=== PATIENT | male | born 1995 | race Caucasian/White ===

== ENCOUNTER 2017-04-22 15:20 | Emergency (ER) | payer OTHER ==
[~2017-04-22] VITALS: Ht 185.4 cm; Wt 79.6 kg
[2017-04-22 15:20] VITALS: TEMP 36.4; Ht 185.4 cm; Wt 79.6 kg
[2017-04-22] MEDS ORDERED: ONDANSETRON INJ 2 MG/ML 2 ML VIAL IV STA (15:22)
[2017-04-22] MEDS ORDERED: KETOROLAC TROMETHAMINE 30 MG/ML VIAL IV STA (15:22)
[2017-04-22] MEDS ORDERED: SODIUM CHLORIDE 0.9% 1000ML 2,000 ML IV STA (15:22)
[2017-04-22 16:04] LABS: BASO % 0.2 %; BASO ABS # 0.03 K/uL (0-0.2); COMPLETE YES; HEMATOCRIT 40.6 % (42-52); IG% 0.4 %; LYMPH % 5.7 %; LYMPH ABS # 1.11 K/uL (1.2-3.4); MEAN CELL VOLUME 88.5 fL (80-100); MEAN CORPUSCULAR HEMOGLOBIN 31.6 pg (25-34); MEAN CORPUSCULAR HGB CONC 35.7 g/dl (32-36); MEAN PLATELET VOLUME 10.5 fL (7.4-10.4); MONO % 3.3 %; NEUT % 90.4 %; PLATELET COUNT 223 K/uL (130-400); RED BLOOD COUNT 4.59 M/uL (4.7-6.1); WHITE BLOOD COUNT 19.53 K/uL (4.8-10.8)
--- NOTE | 2017-04-22 16:15 | DIAGNOSTIC IMAGING REPORT ---
ABDOMEN 2VIEW W/PA CHEST RTN HISTORY: 22 years-old Male abd pain acute generalized abdominal pain with vomiting COMPARISON: None available TECHNIQUE: PA view of the chest with erect and supine views of the abdomen FINDINGS: Cardiomediastinal and hilar silhouettes are within normal limits. There is no pneumothorax, pleural effusion, focal airspace consolidation or overt pulmonary edema. Bones of the chest are grossly intact. Radiopaque focus overlying the lower lumbar spine is subsequently removed suggesting object external to the patient. Bowel gas pattern is nonobstructive. No pneumoperitoneum. No organomegaly or urolith identified. IMPRESSION: 1. Nonobstructive bowel gas pattern without pneumoperitoneum. 2. No acute cardiopulmonary abnormality. The above report was generated using voice recognition software. It may contain grammatical, syntax or spelling errors. Electronically signed by: Jeremias Ramirez M.D. 04/22/2017 4:13 PM Dictated Date/Time: 04/22/2017 4:12 PM
[2017-04-22 16:23] LABS: BUN/CREATININE RATIO 16.4 (10-20); CALCIUM 8.8 mg/dl (8.5-10.1); CREATININE 1.06 mg/dl (0.60-1.40); POTASSIUM 3.6 mmol/L (3.5-5.1)
[2017-04-22] MEDS ORDERED: OPTIRAY 320 IV PRN (17:30)
--- NOTE | 2017-04-22 17:46 | DIAGNOSTIC IMAGING REPORT ---
ABDOMEN AND PELVIS CT WITH IV CONTRAST CT DOSE: 338.71 mGy.cm HISTORY: Acute generalized abdominal pain diffuse abd pain TECHNIQUE: Multiaxial CT images of the abdomen and pelvis were performed following the use of intravenous contrast. 116 mL Optiray 320 IV contrast was administered A dose lowering technique was utilized adhering to the principles of ALARA. COMPARISON STUDY: None. FINDINGS: Lung bases are generally clear. No pneumoperitoneum. Imaged inferior cardiac chambers are unremarkable. The liver, spleen, gallbladder, pancreas and adrenal glands are within normal limits. Kidneys, ureters and urinary bladder are unremarkable. The abdominal aorta is normal in both course and caliber. There is no bulky adenopathy identified. There is no bowel obstruction or focal bowel wall thickening identified. Postsurgical changes compatible with prior appendectomy. Soft tissues are unremarkable. The bones appear intact. Bone islands of the pelvis and proximal femora noted. IMPRESSION: 1. No acute intra-abdominal or intrapelvic abnormality identified. 2. Prior appendectomy. Electronically signed by: Jeremias Ramirez M.D. 04/22/2017 5:44 PM Dictated Date/Time: 04/22/2017 5:39 PM
[2017-04-22 18:14] LABS: VEN BLD GAS O2 SATURATION 60.6 %; VEN BLOOD GAS BASE EXCESS -2.1 mEq/L
[2017-04-22 18:35] LABS: BUN/CREATININE RATIO 20.2 (10-20); CALCIUM 8.7 mg/dl (8.5-10.1); CREATININE 0.86 mg/dl (0.60-1.40); POTASSIUM 4.4 mmol/L (3.5-5.1)
[2017-04-22 18:40] LABS: URINE APPEARANCE CLEAR (CLEAR); URINE BILIRUBIN NEG (NEG); URINE COLOR YELLOW; URINE EPITHELIAL CELL AUTO 0-5 /lpf (0-5); URINE NITRITE NEG (NEG); URINE SPECIFIC GRAVITY > 1.045 (1.000-1.030); UROBILINOGEN NEG (NEG); ZZUR CULT IF INDIC CLEAN CATCH NO
[2017-04-22 18:42] LABS: MANUAL MICROSCOPIC REQUIRED? NO; REVIEW REQ? NO
[2017-04-22 18:57] VITALS: BP 133/63; PULSE 87; O2SAT 97
--- NOTE | 2017-04-22 19:08 | EMERGENCY ROOM VISIT NOTE ---
History Report prepared by Manohar: Nicholas Burris Under the Supervision of: Lisha CarrasquilloO. First contact with patient: 15:19 Chief Complaint: VOMITING Stated Complaint: VOMITING, PAIN ALL OVER, WEAK, NOT FEELING WELL History of Present Illness The patient is a 22 year old male who presents to the Emergency Room via EMS with complaints of a persistent illness that started last night. He says that he drank 3 beers last night, and did not do any drugs. He states that he remembers the entire night. The patient states that he has been having episodes of vomiting as well, and feels very weak. He says that he has not had any recent abdominal trauma or falls. The patient denies any chest pain, shortness of breath, blood in vomit, or pain or burning with urination. He notes that his last bowel movement was yesterday. He says that he has a history of an appendectomy. He does not take any daily medications. Source of History: patient, nursing staff Onset: Last night Position: other (global - illness) Quality: other (drank 3 beers last night, denies drugs) Timing: other (persistent) Associated Symptoms: + vomiting (no blood), + abdominal pain, + weakness, No chest pain, No SOB, No urinary symptoms Note: No other associated symptoms noted. Review of Systems See HPI for pertinent positives & negatives. A total of 10 systems reviewed and were otherwise negative. Past Medical & Surgical Medical Problems: (1) No chronic diseases present Surgical Problems: (1) Hx of appendectomy Family History No pertinent family history Social History Alcohol Use: occasionally Housing Status: lives with roommate Occupation Status: [employer] Current/Historical Medications No Active Prescriptions or Reported Meds Allergies Coded Allergies: Amoxicillin (Unverified Allergy, Unknown, UNKNOWN, 04/22/17) Azithromycin (Unverified Allergy, Unknown, UNKNOWN, 04/22/17) Cefaclor (Unverified Allergy, Unknown, UNKNOWN, 04/22/17) Physical Exam Vital Signs Date Time Temp Pulse Resp B/P (MAP) Pulse Ox O2 Delivery O2 Flow Rate FiO2 04/22/17 18:57 87 18 133/63 97 04/22/17 18:00 86 15 133/60 97 Room Air 04/22/17 17:32 95 16 121/59 97 Room Air 04/22/17 16:10 84 16 123/52 97 Room Air 04/22/17 15:20 36.4 90 16 139/83 99 Room Air Physical Exam GENERAL: up in bed, no acute distress, nontoxic, talking in full sentences EYE EXAM: normal conjunctiva. OROPHARYNX: no exudate, no erythema, lips, buccal mucosa, and tongue normal and mucous membranes are moist NECK: supple, no nuchal rigidity, no adenopathy, non-tender LUNGS: Clear to auscultation. Normal chest wall mechanics HEART: no murmurs, S1 normal and S2 normal ABDOMEN: abdomen soft, non-tender, normo-active bowel sounds, no masses, no rebound or guarding. BACK: Back is symmetrical on inspection and there is no deformity, no midline tenderness, no CVA tenderness. SKIN: no rashes and no bruising UPPER EXTREMITIES: upper extremities are grossly normal. LOWER EXTREMITIES: No pitting edema. NEURO EXAM: Normal sensorium, cranial nerves II-XII grossly intact, normal speech, no gross weakness of arms, no gross weakness of legs. Medical Decision & Procedures ER Provider Diagnostic Interpretation: Radiology results as stated below per my review and the radiologist's interpretation: ABDOMEN 2VIEW W/PA CHEST RTN HISTORY: 22 years-old Male abd pain acute generalized abdominal pain with vomiting COMPARISON: None available TECHNIQUE: PA view of the chest with erect and supine views of the abdomen FINDINGS: Cardiomediastinal and hilar silhouettes are within normal limits. There is no pneumothorax, pleural effusion, focal airspace consolidation or overt pulmonary edema. Bones of the chest are grossly intact. Radiopaque focus overlying the lower lumbar spine is subsequently removed suggesting object external to the patient. Bowel gas pattern is nonobstructive. No pneumoperitoneum. No organomegaly or urolith identified. IMPRESSION: 1. Nonobstructive bowel gas pattern without pneumoperitoneum. 2. No acute cardiopulmonary abnormality. The above report was generated using voice recognition software. It may contain grammatical, syntax or spelling errors. Electronically signed by: Jeremias Ramirez M.D. 04/22/2017 4:13 PM Dictated Date/Time: 04/22/2017 4:12 PM ABDOMEN AND PELVIS CT WITH IV CONTRAST CT DOSE: 338.71 mGy.cm HISTORY: Acute generalized abdominal pain diffuse abd pain TECHNIQUE: Multiaxial CT images of the abdomen and pelvis were performed following the use of intravenous contrast. 116 mL Optiray 320 IV contrast was administered A dose lowering technique was utilized adhering to the principles of ALARA. COMPARISON STUDY: None. FINDINGS: Lung bases are generally clear. No pneumoperitoneum. Imaged inferior cardiac chambers are unremarkable. The liver, spleen, gallbladder, pancreas and adrenal glands are within normal limits. Kidneys, ureters and urinary bladder are unremarkable. The abdominal aorta is normal in both course and caliber. There is no bulky adenopathy identified. There is no bowel obstruction or focal bowel wall thickening identified. Postsurgical changes compatible with prior appendectomy. Soft tissues are unremarkable. The bones appear intact. Bone islands of the pelvis and proximal femora noted. IMPRESSION: 1. No acute intra-abdominal or intrapelvic abnormality identified. 2. Prior appendectomy. Electronically signed by: Jeremias Ramirez M.D. 04/22/2017 5:44 PM Dictated Date/Time: 04/22/2017 5:39 PM Laboratory Results 04/22/17 15:52 Red Blood Count 4.59, Mean Corpuscular Volume 88.5, Mean Corpuscular Hemoglobin 31.6, Mean Corpuscular Hemoglobin Concent 35.7, Mean Platelet Volume 10.5, Neutrophils (%) (Auto) 90.4, Lymphocytes (%) (Auto) 5.7, Monocytes (%) (Auto) 3.3, Eosinophils (%) (Auto) 0.0, Basophils (%) (Auto) 0.2, Neutrophils # (Auto) 17.68, Lymphocytes # (Auto) 1.11, Monocytes # (Auto) 0.64, Eosinophils # (Auto) 0.00, Basophils # (Auto) 0.03 04/22/17 18:07 Test 04/22/17 15:52 04/22/17 18:07 04/22/17 18:20 White Blood Count 19.53 K/uL (4.8-10.8) Red Blood Count 4.59 M/uL (4.7-6.1) Hemoglobin 14.5 g/dL (14.0-18.0) Hematocrit 40.6 % (42-52) Mean Corpuscular Volume 88.5 fL (80-100) Mean Corpuscular Hemoglobin 31.6 pg (25-34) Mean Corpuscular Hemoglobin Concent 35.7 g/dl (32-36) Platelet Count 223 K/uL (130-400) Mean Platelet Volume 10.5 fL (7.4-10.4) Neutrophils (%) (Auto) 90.4 % Lymphocytes (%) (Auto) 5.7 % Monocytes (%) (Auto) 3.3 % Eosinophils (%) (Auto) 0.0 % Basophils (%) (Auto) 0.2 % Neutrophils # (Auto) 17.68 K/uL (1.4-6.5) Lymphocytes # (Auto) 1.11 K/uL (1.2-3.4) Monocytes # (Auto) 0.64 K/uL (0.11-0.59) Eosinophils # (Auto) 0.00 K/uL (0-0.5) Basophils # (Auto) 0.03 K/uL (0-0.2) RDW Standard Deviation 41.2 fL (36.4-46.3) RDW Coefficient of Variation 12.8 % (11.5-14.5) Immature Granulocyte % (Auto) 0.4 % Immature Granulocyte # (Auto) 0.07 K/uL (0.00-0.02) Total Bilirubin 0.5 mg/dl (0.2-1) Direct Bilirubin 0.1 mg/dl (0-0.2) Aspartate Amino Transf (AST/SGOT) 26 U/L (15-37) Alanine Aminotransferase (ALT/SGPT) 29 U/L (12-78) Alkaline Phosphatase 75 U/L (45-117) Total Protein 7.2 gm/dl (6.4-8.2) Albumin 4.4 gm/dl (3.4-5.0) Lipase 122 U/L (73-393) Venous Blood pH 7.36 (7.36-7.41) Venous Blood Partial Pressure CO2 42 mmHg (38.0-50.0) Venous Blood Partial Pressure O2 34 mmHg Venous Blood HCO3 23 mmol/L Venous Blood Oxygen Saturation 60.6 % Venous Blood Base Excess -2.1 mEq/L Anion Gap 11.0 mmol/L (3-11) Est Creatinine Clear Calc Drug Dose 153.0 ml/min Estimated GFR () 143.7 Estimated GFR (Non- 124.0 BUN/Creatinine Ratio 20.2 (10-20) Calcium Level 8.7 mg/dl (8.5-10.1) Urine Color YELLOW Urine Appearance CLEAR (CLEAR) Urine pH 5.0 (4.5-7.5) Urine Specific [place] > 1.045 (1.000-1.030) Urine Protein NEG (NEG) Urine Glucose (UA) NEG (NEG) Urine Ketones 2+ (NEG) Urine Occult Blood NEG (NEG) Urine Nitrite NEG (NEG) Urine Bilirubin NEG (NEG) Urine Urobilinogen NEG (NEG) Urine Leukocyte Esterase NEG (NEG) Urine WBC (Auto) 0 /hpf (0-5) Urine RBC (Auto) 0-4 /hpf (0-4) Urine Hyaline Casts (Auto) 0 /lpf (0-5) Urine Epithelial Cells (Auto) 0-5 /lpf (0-5) Urine Bacteria (Auto) NEG (NEG) Laboratory results per my review. Medications Administered Medications (Trade) Dose Ordered Sig/Alex Route Start Time Stop Time Status Last Admin Dose Admin Sodium Chloride 2,000 ml @ 999 mls/hr Q2H1M STAT IV 04/22/17 15:22 04/22/17 17:22 DC 04/22/17 15:32 999 MLS/HR Ondansetron HCl (Zofran Inj) 4 mg NOW STAT IV 04/22/17 15:22 04/22/17 15:25 DC 04/22/17 15:42 4 MG Ketorolac Tromethamine (Toradol Inj) 30 mg NOW STAT IV 04/22/17 15:22 04/22/17 15:25 DC 04/22/17 15:42 30 MG ED Course ED COURSE: Vital signs were reviewed and showed hypertensive situational vitals. The patients medical record was reviewed The above diagnostic studies were performed and reviewed. ED treatments and interventions as stated above. 1518: The patient was evaluated in room C1B. A complete history and physical examination was performed. 1522: Ordered Toradol Inj 30 mg IV, Zofran Inj 4 mg IV, NSS 2000 ml @ 999 mls/ hr IV. 1755: I reevaluated the patient, and he feels 100% better. I updated the patient. We will do repeat blood work. 1848: Upon reevaluation, the patient is feeling great. Mom was updated at bedside. I discussed my findings with the patient and he understands and agrees with the treatment plan. Based on the patients age, coexisting illnesses, exam and lab findings the decision to treat as an outpatient was made. The patient remained stable while under my care. The patient appeared well at the time of discharge. Medical Decision Differential diagnoses includes but is not limited to gastritis, peptic ulcer disease, GERD, gallbladder disease, pancreatitis, small bowel obstruction, acute coronary syndrome, pericarditis, ischemic bowel, irritable bowel disease, irritable bowel syndrome, appendicitis, diverticulitis, malignancy, hernia, urinary tract infection, torsion, perforation, trauma, infectious. Patient is a 22-year-old male who presents to ER referred diffuse stomach pain which is in the epigastric region associated with vomiting. Previous appendectomy. Last bowel movement was yesterday. Does admits to vomiting. He had 4 beers last night but does not normally drink. On exam he is a benign abdomen without signs peritonitis. Leukocytosis of 19,000. BMP shows a CO2 of 15. Bilirubin all LFTs and lipase is unremarkable. With a low CO2 repeat BMP and VBG was performed. No acidosis. CO2 increased was likely secondary to dehydration. He was given 2 L normal saline. UA was unremarkable. CT of the abdomen and pelvis was unremarkable. Patient was feeling significantly better following 2 L normal saline and Zofran. He was discharged with mom follow-up with PCP. I do favor SYMPTOMS are likely related to either a gastritis from drinking or a GI bug. Discussed with Pt concerning signs and symptoms to watch out for. Pt was instructed to follow up with their PCP and discussed with the patient their option to return to the ED at anytime for persistent or worsening symptoms. The appropriate anticipatory guidance and out-patient management, including indications for return to the emergency department, were explained at length to the patient and understood. Medication Reconcilliation Current Medication List: was personally reviewed by me Blood Pressure Screening Patient's blood pressure: Elevated blood pressure Blood pressure disposition: Elevated BP felt to be situational Impression Primary Impression: Vomiting Scribe Attestation The scribe's documentation has been prepared under my direction and personally reviewed by me in its entirety. I confirm that the note above accurately reflects all work, treatment, procedures, and medical decision making performed by me. Departure Information Dispostion Home / Self-Care Prescriptions No Active Prescriptions or Reported Meds Patient Instructions ED Nausea Vomiting, My [facility] Additional Instructions Please follow up with your primary care doctor with in the next 24 hours. Any worsening of your symptoms, please return to the ED immediately. This includes any fevers greater than 100.4, worsening pain, chest pain, shortness breath, persistent nausea, vomiting, unable to eat or drink, or any other concerning signs or symptoms from your standpoint. Please take with clear fluids for the remainder of the night. You can advance your diet tomorrow as needed. Problem Qualifiers Primary Impression: Vomiting Vomiting type: unspecified Vomiting Intractability: unspecified Nausea presence: unspecified Qualified Codes: R11.10 - Vomiting, unspecified
[2017-04-23] MEDS ORDERED: ONDA4TAB10 SL (05:30)
== END 2017-04-22 18:58 | disposition home or self-care (01) ==
LOC: C.EDC 15:23
DX: R11.10 Vomiting, unspecified (principal)

== ENCOUNTER 2017-04-22 21:30 | Emergency (ER) | payer OTHER ==
[~2017-04-22] VITALS: Ht 185.4 cm; Wt 82.0 kg
[2017-04-22 21:33] VITALS: TEMP 37.5; Ht 185.4 cm; Wt 82.0 kg
[2017-04-22] MEDS ORDERED: MoRPHine SULFATE 2 MG/ML CARP IV STA (22:03)
[2017-04-22] MEDS ORDERED: PROMETHAZINE HCL INJ 25 MG in SODIUM CHLORIDE 0.9% 50ML 50 ML IV STA (22:03)
[2017-04-22] MEDS ORDERED: PANTOprazole INJ 40 MG in SYRINGE 0 ML IV ONE (22:15)
[2017-04-22] MEDS ORDERED: SODIUM CHLORIDE 0.9% 1000ML 1,000 ML IV ONE ×2 (22:15→23:45)
[2017-04-22 22:19] LABS: GASTRIC OCCULT BLOOD POS (NEG); GASTRIC OCCULT BLOOD PH 3
[2017-04-22 22:21] LABS: BASO % 0.1 %; BASO ABS # 0.02 K/uL (0-0.2); COMPLETE YES; HEMATOCRIT 40.9 % (42-52); IG% 0.2 %; LYMPH % 10.5 %; LYMPH ABS # 1.83 K/uL (1.2-3.4); MEAN CELL VOLUME 87.2 fL (80-100); MEAN CORPUSCULAR HEMOGLOBIN 31.8 pg (25-34); MEAN CORPUSCULAR HGB CONC 36.4 g/dl (32-36); MEAN PLATELET VOLUME 10.9 fL (7.4-10.4); MONO % 3.8 %; NEUT % 85.4 %; PLATELET COUNT 261 K/uL (130-400); RED BLOOD COUNT 4.69 M/uL (4.7-6.1); WHITE BLOOD COUNT 17.37 K/uL (4.8-10.8)
[2017-04-22 22:26] LABS: ALB/GLOB RATIO 1.5 (0.9-2); BUN/CREATININE RATIO 16.5 (10-20); CALCIUM 9.8 mg/dl (8.5-10.1); CREATININE 1.01 mg/dl (0.60-1.40)
[2017-04-22 22:37] LABS: POTASSIUM 3.6 mmol/L (3.5-5.1)
[2017-04-23 00:13] LABS: BENZODIAZEPINE, URINE NEG (NEG); COCAINE,URINE NEG (NEG); PHENCYCLIDINE, URINE NEG (NEG)
[2017-04-23] MEDS ORDERED: PROCHLORPERAZINE 5 MG/ML 2 ML VIAL IV STA (00:35)
[2017-04-23] MEDS ORDERED: DiphenhydrAMINE HCL 50 MG/ML VIAL IV STA (00:35)
[2017-04-23] MEDS ORDERED: ONDA4TAB10 SL (05:30)
[2017-04-23 05:50] VITALS: BP 102/62; PULSE 73; O2SAT 98
--- NOTE | 2017-04-23 07:48 | EMERGENCY ROOM VISIT NOTE ---
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 History of Present Illness The patient is a 22 year old male who presents to the Emergency Room with complaints of nausea and vomiting for the past one day. The patient was seen and evaluated at this facility several hours ago with this complaint. At that visit he had blood work, antiemetics, and IV fluids. The patient felt well at the time of discharge, and had started to regain his appetite. The patient is accompanied today by his mother who drove from [place] to be with her son. They decided to go to a restaurant from here, as the patient has not eaten today. The patient had a glass of water and some soup. He essentially immediately started with return of his emesis. This continued for several minutes, and began to have scant bloody emesis. The mother did have emesis bags from her initial visit today, and she did bring one of these with her. The patient has abdominal cramping and soreness in the epigastric area. He is having a burning sensation in his throat. He considers himself usually healthy and rates his current discomfort an 8/10. Review of Systems More than 10 systems were reviewed and otherwise negative with the exception of history of present illness. Past Medical/Surgical History Medical Problems: (1) No chronic diseases present Surgical Problems: (1) Hx of appendectomy Family History No pertinent family history Social History Smoking Status: Never Smoker Alcohol Use: occasionally Drug Use: marijuana Housing Status: lives with roommate Occupation Status: [employer] student Current/Historical Medications Scheduled Ondasetron Odt (Zofran Odt), 4 MG SL Q6H Physical Exam Vital Signs Date Time Temp Pulse Resp B/P (MAP) Pulse Ox O2 Delivery O2 Flow Rate FiO2 04/23/17 05:50 73 16 102/62 98 Room Air 04/23/17 05:11 96 04/23/17 04:46 78 18 04/23/17 04:31 76 21 107/54 04/23/17 04:16 71 16 04/23/17 04:02 114/57 04/23/17 04:01 79 15 04/23/17 03:46 94 18 04/23/17 03:41 80 12 97 04/23/17 03:31 143/52 04/23/17 03:26 82 18 96 04/23/17 03:11 93 17 96 04/23/17 03:01 136/59 04/23/17 02:41 65 18 93 04/23/17 02:31 129/50 04/23/17 02:26 81 18 96 04/23/17 02:11 85 18 96 04/23/17 02:01 135/50 04/23/17 01:56 84 19 96 04/23/17 01:51 87 21 95 04/23/17 01:36 87 19 95 04/23/17 01:31 110/47 04/23/17 01:21 87 20 95 04/23/17 01:07 102 04/23/17 01:06 97 12 95 04/23/17 01:01 125/47 04/23/17 00:51 99 23 96 04/23/17 00:36 26 04/23/17 00:31 132/59 04/23/17 00:21 95 22 96 04/23/17 00:06 86 21 96 04/23/17 00:01 104/50 04/22/17 23:51 84 21 97 04/22/17 23:36 87 20 98 04/22/17 23:31 127/65 04/22/17 23:30 19 98 04/22/17 23:15 84 18 96 04/22/17 23:01 102/58 04/22/17 23:00 95 16 95 04/22/17 22:56 124/53 04/22/17 22:45 93 97 Room Air 04/22/17 21:45 88 04/22/17 21:33 37.5 125 22 125/56 99 Room Air Physical Exam VITALS: Vitals are noted on the nurse's note and reviewed by myself. Vital signs stable. GENERAL: Well-developed, well-nourished, white male who appears ill. Patient is cooperative with the examination. HEAD: Normocephalic atraumatic. MOUTH: Mucous membranes dry. Tonsils are not enlarged. Pharynx without erythema, blood, or exudate. Uvula midline. Airway patent. NECK: Supple without nuchal rigidity. No lymphadenopathy. No thyromegaly. Cervical spine is nontender. HEART: Regular rate and rhythm without murmurs gallops or rubs. LUNGS: Clear to auscultation bilaterally without wheezes, rales or rhonchi. No retractions or accessory muscle use. ABDOMEN: Positive normal bowel sounds x 4. Soft with generalized tenderness worse in the epigastric area. Medical Decision & Procedures Laboratory Results 04/22/17 21:43 Red Blood Count 4.69, Mean Corpuscular Volume 87.2, Mean Corpuscular Hemoglobin 31.8, Mean Corpuscular Hemoglobin Concent 36.4, Mean Platelet Volume 10.9, Neutrophils (%) (Auto) 85.4, Lymphocytes (%) (Auto) 10.5, Monocytes (%) (Auto) 3.8, Eosinophils (%) (Auto) 0.0, Basophils (%) (Auto) 0.1, Neutrophils # (Auto) 14.82, Lymphocytes # (Auto) 1.83, Monocytes # (Auto) 0.66, Eosinophils # (Auto) 0.00, Basophils # (Auto) 0.02 04/22/17 21:43 Test 04/22/17 21:43 04/22/17 22:00 04/22/17 23:28 White Blood Count 17.37 K/uL (4.8-10.8) Red Blood Count 4.69 M/uL (4.7-6.1) Hemoglobin 14.9 g/dL (14.0-18.0) Hematocrit 40.9 % (42-52) Mean Corpuscular Volume 87.2 fL (80-100) Mean Corpuscular Hemoglobin 31.8 pg (25-34) Mean Corpuscular Hemoglobin Concent 36.4 g/dl (32-36) Platelet Count 261 K/uL (130-400) Mean Platelet Volume 10.9 fL (7.4-10.4) Neutrophils (%) (Auto) 85.4 % Lymphocytes (%) (Auto) 10.5 % Monocytes (%) (Auto) 3.8 % Eosinophils (%) (Auto) 0.0 % Basophils (%) (Auto) 0.1 % Neutrophils # (Auto) 14.82 K/uL (1.4-6.5) Lymphocytes # (Auto) 1.83 K/uL (1.2-3.4) Monocytes # (Auto) 0.66 K/uL (0.11-0.59) Eosinophils # (Auto) 0.00 K/uL (0-0.5) Basophils # (Auto) 0.02 K/uL (0-0.2) RDW Standard Deviation 41.0 fL (36.4-46.3) RDW Coefficient of Variation 12.8 % (11.5-14.5) Immature Granulocyte % (Auto) 0.2 % Immature Granulocyte # (Auto) 0.04 K/uL (0.00-0.02) Anion Gap 17.0 mmol/L (3-11) Est Creatinine Clear Calc Drug Dose 130.7 ml/min Estimated GFR () 122.7 Estimated GFR (Non- 105.8 BUN/Creatinine Ratio 16.5 (10-20) Calcium Level 9.8 mg/dl (8.5-10.1) Total Bilirubin 0.8 mg/dl (0.2-1) Aspartate Amino Transf (AST/SGOT) 26 U/L (15-37) Alanine Aminotransferase (ALT/SGPT) 29 U/L (12-78) Alkaline Phosphatase 83 U/L (45-117) Total Protein 8.0 gm/dl (6.4-8.2) Albumin 4.8 gm/dl (3.4-5.0) Globulin 3.2 gm/dl (2.5-4.0) Albumin/Globulin Ratio 1.5 (0.9-2) Lipase 114 U/L (73-393) Gastric Fluid pH 3 Gastric Fluid Occult Blood POS (NEG) Urine Opiates Screen POS (NEG) Urine Methadone, Qualitative NEG (NEG) Urine Barbiturates NEG (NEG) Urine Phencyclidine (PCP) Level NEG (NEG) Ur Amphetamine/Methamphetamine NEG (NEG) MDMA (Ecstasy) Screen NEG (NEG) Urine Benzodiazepines Screen NEG (NEG) Urine Cocaine Metabolite NEG (NEG) Urine Marijuana (THC) POS (NEG) Medications Administered Medications (Trade) Dose Ordered Sig/Alex Route Start Time Stop Time Status Last Admin Dose Admin Promethazine HCl 25 mg/Sodium Chloride 51 ml @ 204 mls/hr NOW STAT IV 04/22/17 22:03 04/22/17 22:17 DC 04/22/17 22:25 204 MLS/HR Morphine Sulfate (MoRPHine SULFATE INJ) 2 mg NOW STAT IV 04/22/17 22:03 04/22/17 22:06 DC 04/22/17 22:23 2 MG Pantoprazole Sodium 40 mg/ Syringe 10 ml @ 5 mls/min NOW ONCE IV 04/22/17 22:15 04/22/17 22:16 DC 04/22/17 22:26 5 MLS/MIN Sodium Chloride 1,000 ml @ 999 mls/hr Q1H1M ONCE IV 04/22/17 22:15 04/22/17 23:15 DC 04/22/17 22:22 999 MLS/HR Sodium Chloride 1,000 ml @ 999 mls/hr Q1H1M ONCE IV 04/22/17 23:45 04/23/17 00:45 DC 04/23/17 00:39 999 MLS/HR Diphenhydramine HCl (Benadryl Inj) 50 mg NOW STAT IV 04/23/17 00:35 04/23/17 00:37 DC 04/23/17 00:41 50 MG Prochlorperazine Edisylate (Compazine Inj) 10 mg NOW STAT IV 04/23/17 00:35 04/23/17 00:37 DC 04/23/17 00:43 10 MG ED Course Physical exam and history were performed. Nursing notes, EMR, and Medication List were personally reviewed. Patient appears to have nausea and vomiting symptoms overall for the past one day. The patient was discharged roughly an hour ago from this department with his complaint. The patient felt well enough at the time of discharge that he attempted to eat, however he had immediate return of his symptoms. He is now having some scant blood in his emesis. IV access was established and labs were obtained. The patient was given IV Phenergan, IV Protonix, and IV saline. The patient's blood work is as above and was reviewed. He has an elevated white blood cell count of 17,000 which is somewhat improved from his initial blood work today. He does not have a drop in his hemoglobin or significant anemia. His electrolytes are fairly unremarkable. Hemoccult of gastric contents did return as positive. Drug of abuse screen was positive for marijuana. Lipase and transaminases were not diagnostic. The patient was reevaluated multiple times throughout the course of his stay. Roughly 2 hours after arrival I reevaluated the patient, and he was actively vomiting. Because of this I elected to provide him 10 mg IV Compazine and 50 mg IV Benadryl. Following administration of Compazine and Benadryl the patient was able to sleep very comfortably in his emergency department pad. This intervention especially completely resolved his symptoms, and the patient remained well for several hours. Over the course of an additional 4-5 hours he did not have any return of his symptoms. After about a total hours of emergency department stay the patient woke and was feeling much better. He was able to drink water without difficulty. He no longer has abdominal pain, and like to be discharged. This appears reasonable as I suspect his symptoms are related to a gastritis possibly secondary to alcohol or marijuana use. He is also certainly could have a viral infection. The patient will be given a short course of Zofran. He was otherwise invited back to the ER with any new, worsening, or concerning symptoms. The chart was completed utilizing [employer] Speech Voice Recognition Software. Grammatical errors, random word insertions, pronoun errors, and incomplete sentences are an occasional consequence of this system due to software limitations, ambient noise, and hardware issues. Any formal questions or concerns about the content, text, or information contained within the body of this dictation should be directly addressed to the provider for clarification. . Medical Decision Differential diagnosis: Etiologies such as gastroenteritis, food borne illness, infections, appendicitis , diverticulitis, inflammatory bowel disease, obstruction, GI bleed, biliary pathology, as well as others were entertained. Blood Pressure Screening Blood pressure disposition: Elevated BP felt to be situational Impression Primary Impression: Nausea and vomiting Additional Impression: Marijuana use Departure Information Dispostion Home / Self-Care Condition GOOD Prescriptions Ondasetron Odt (ZOFRAN ODT) 4 Mg Tab 4 MG SL Q6H for Nausea, #12 TAB Prov: Salomón Gonsales PA-C 04/23/17 Forms HOME CARE DOCUMENTATION FORM, IMPORTANT VISIT INFORMATION Patient Instructions My [facility] Additional Instructions You were seen and evaluated today on an emergency basis only. This is not a substitute for, or an effort to provide, complete comprehensive medical care. It is not possible to recognize and treat all injuries or illnesses in a single emergency department visit. For this reason it is recommended that you followup with your primary care physician in the next 1 to 2 days for recheck of your condition. Zofran 1 tablet every 6 hrs as needed for nausea. Drink plenty of fluids and remain well hydrated. Drink very small amounts every 10-15 minutes. Avoid large volumes of fluid and one time as this will upset your stomach. Try not to eat for the next 24 hours. After this start with bland foods such as breads and fruits. Avoid substances such as caffeine, nicotine, marijuana, and alcohol You are welcome to return to the emergency department anytime with new, worsening, or concerning symptoms. Problem Qualifiers
[2017-04-25 09:30] LABS: COD UR NEGATIVE NG/ML (CUTOFF=50); HYDROCOD UR NEGATIVE NG/ML (CUTOFF=50); HYDROMOR UR NEGATIVE NG/ML (CUTOFF=50); MORPHINE UR 1520 NG/ML (CUTOFF=50); NORHYDROCODONE CONF UR NEGATIVE NG/ML (CUTOFF=50); OXYMORPH UR NEGATIVE NG/ML (CUTOFF=50)
== END 2017-04-23 05:55 | disposition home or self-care (01) ==
LOC: C.EDB 21:31
DX: R11.2 Nausea with vomiting, unspecified (principal); F12.90 Cannabis use, unspecified, uncomplicated; Z90.89 Acquired absence of other organs